=== PATIENT | male | born 1975 | race Caucasian/White ===

== ENCOUNTER 2018-05-10 01:39 | Emergency (ER) | payer OTHER ==
[~2018-05-10] VITALS: Ht 177.8 cm; Wt 97.5 kg
[~2018-05-10 01:39] MED LIST: SYMBICORT; VENTOLIN HFA 1818 GM
[2018-05-10 02:00] LABS: ABSOLUTE BASOPHILS 0.1 thou/uL (0.0-0.2); ABSOLUTE EOSINOPHILS 0.4 thou/uL (0.0-0.7); ABSOLUTE MONOCYTES 0.7 thou/uL (0.0-1.2); ABSOLUTE NEUTROPHILS 5.3 thou/uL (1.6-8.1); BASOPHILS 1.3 %; EOSINOPHILS 4.4 %; HEMATOCRIT 42.7 % (42.0-52.0); HEMOGLOBIN 14.3 gm/dL (14.0-18.0); LYMPHOCYTES 31.1 %; MCH 28.9 pg (26.0-34.0); MCHC 33.5 g/dL (28.0-37.0); MCV 86.2 fL (80.0-100.0); MONOCYTES 7.8 %; MPV 8.1 fl. (7.2-11.1); NUCLEATED RBCS 0 /100WBC; PLATELET COUNT* 316 thou/uL (150-400); POLYS 55.4 %; RBC 4.95 mil/uL (4.50-6.00); RDW-CV 13.8 % (10.5-14.5); WBC 9.6 thou/uL (4.0-11.0)
[2018-05-10 02:08] LABS: ANION GAP 6 mmol/L (7-16); BUN 16 mg/dL (7-18); CALCIUM 8.9 mg/dL (8.5-10.1); CHLORIDE 104 mmol/L (98-107); CO2 28 mmol/L (21-32); GLUCOSE 112 mg/dL (70-99); POTASSIUM 3.4 mmol/L (3.5-5.1); SODIUM 138 mmol/L (136-145)
[2018-05-10 02:15] LABS: ALBUMIN 3.6 g/dL (3.4-5.0); ALKALINE PHOSPHATASE 101 U/L (46-116); SGOT 21 U/L (15-37); SGPT 34 U/L (30-65); TOTAL BILIRUBIN 0.3 mg/dL (<0.1-1.0); TOTAL PROTEIN 6.5 g/dL (6.4-8.2); TROPONIN-I LEVEL <0.06 ng/mL (<0.06)
[2018-05-10 02:49] LABS: URINE BILIRUBIN NEGATIVE (Negative); URINE BLOOD NEGATIVE (Negative); URINE CLARITY CLEAR; URINE COLOR STRAW; URINE GLUCOSE-RANDOM NEGATIVE (Negative); URINE KETONES NEGATIVE (Negative); URINE LEUKOCYTES-REFLEX NEGATIVE (Negative); URINE NITRITE-REFLEX NEGATIVE (Negative); URINE PROTEIN NEGATIVE (Negative); URINE SPECIFIC GRAVITY <= 1.005 (1.005-1.030); URINE UROBILINOGEN 0.2 E.U./dl (0.2-1.0)
[2018-05-10] MEDS ORDERED: PREDNISONE50 MG PO (04:20)
--- NOTE | 2018-05-10 17:52 | EKG ---
[place] [address] ELECTROCARDIOGRAM REPORT Name: PAM CHAUDHRY Room: [facility]#: [id number] Admission: 05/10/18 Attend Phys: Discharge: 05/10/18 Date of : 79 Report #: [id number] THIS REPORT FOR: //name// [facility] ED Test Date: 2018-05-10 Test Time: 01:43:27 Pat Name: PAM CHAUDHRY Department: Room: Gender: M [employer]: : 1975 Requested By: Gianna Sanchez Order Number: [id number] MD: Festus Mcdermott Measurements Intervals [place] Rate: 79 P: 52 NH: 152 QRS: 48 QRSD: 97 T: 40 QT: 368 QTc: 422 Interpretive Statements Sinus rhythm Compared to ECG 03/05/2017 21:45:59 No significant changes Electronically Signed On 05-10-2018 17:52:12 CDT by Festus Mcdermott [email or web address] <ELECTRONICALLY SIGNED> By: Festus Mcdermott MD, [facility] 05/10/18 1752 [id number] [id number] Festus Mcdermott MD, FAC /EPI
== END 2018-05-10 04:22 | disposition home or self-care (01) ==
LOC: M.ERS 01:39
PROVIDERS: Emergency Medicine
DX: R07.9 Chest pain, unspecified (principal); J45.909 Unspecified asthma, uncomplicated; F17.210 Nicotine dependence, cigarettes, uncomplicated

== ENCOUNTER 2018-12-05 01:08 | Emergency (ER) | payer OTHER ==
[~2018-12-05] VITALS: Ht 177.8 cm; Wt 97.5 kg
[~2018-12-05 01:08] MED LIST changes: +PREDNISONE50 MG PO
[2018-12-05 01:41] LABS: ABSOLUTE BASOPHILS 0.1 thou/uL (0.0-0.2); ABSOLUTE EOSINOPHILS 0.7 thou/uL (0.0-0.7); EOSINOPHILS 4.7 %; MPV 8.1 fl. (7.2-11.1); RDW-CV 13.9 % (10.5-14.5); WBC 14.1 thou/uL (4.0-11.0)
[2018-12-05 01:46] LABS: ABSOLUTE MONOCYTES 0.9 thou/uL (0.0-1.2); ABSOLUTE NEUTROPHILS 10.5 thou/uL (1.6-8.1); BASOPHILS 0.6 %; HEMATOCRIT 42.9 % (42.0-52.0); HEMOGLOBIN 14.6 gm/dL (14.0-18.0); LYMPHOCYTES 13.9 %; MCH 28.5 pg (26.0-34.0); MCV 83.8 fL (80.0-100.0); MONOCYTES 6.4 %; NUCLEATED RBCS 0 /100WBC; PLATELET COUNT* 381 thou/uL (150-400); POLYS 74.4 %; RBC 5.12 mil/uL (4.50-6.00)
[2018-12-05 01:51] LABS: ANION GAP 10 mmol/L (7-16); BUN 11 mg/dL (7-18); CALCIUM 8.6 mg/dL (8.5-10.1); CHLORIDE 102 mmol/L (98-107); CO2 26 mmol/L (21-32); GLUCOSE 103 mg/dL (70-99); POTASSIUM 4.1 mmol/L (3.5-5.1); SODIUM 138 mmol/L (136-145)
[2018-12-05 02:00] LABS: ALBUMIN 3.6 g/dL (3.4-5.0); ALKALINE PHOSPHATASE 114 U/L (46-116); LIPASE 64 U/L (73-393); SGOT 18 U/L (15-37); SGPT 33 U/L (30-65); TOTAL BILIRUBIN 0.6 mg/dL (<0.1-1.0); TOTAL PROTEIN 7.2 g/dL (6.4-8.2); TROPONIN-I LEVEL <0.06 ng/mL (<0.06)
[2018-12-05 02:54] LABS: URINE BILIRUBIN NEGATIVE (Negative); URINE BLOOD NEGATIVE (Negative); URINE CLARITY CLEAR; URINE COLOR YELLOW; URINE GLUCOSE-RANDOM NEGATIVE (Negative); URINE KETONES NEGATIVE (Negative); URINE LEUKOCYTES-REFLEX NEGATIVE (Negative); URINE NITRITE-REFLEX NEGATIVE (Negative); URINE PROTEIN NEGATIVE (Negative); URINE SPECIFIC GRAVITY <= 1.005 (1.005-1.030); URINE UROBILINOGEN 0.2 E.U./dl (0.2-1.0)
[2018-12-05] MEDS ORDERED: HYDROCODONE-AP1 EAC6 PO (03:11)
[2018-12-05] MEDS ORDERED: ZOFRAN ODT4 MG DISSOLVE (03:11)
[2018-12-05] MEDS ORDERED: AUGMENTIN 875-1 EACH PO (03:11)
[2018-12-05 03:30] VITALS: BP 146/92
--- NOTE | 2018-12-07 13:00 | EKG ---
[place] [address] ELECTROCARDIOGRAM REPORT Name: PAM CHAUDHRY [id number] Admission: 12/05/18 Attend Phys: Discharge: 12/05/18 Date of : 79 Report #: [id number] THIS REPORT FOR: //name// [facility] ED Test Date: 2018-12-05 Test Time: 01:30:51 Pat Name: PAM CHAUDHRY Department: Room: Gender: M [employer] Instrument Mechanic: HERMILO : 1975 Requested By: Tyler Weiss Order Number: [id number] MD: Darnell Addison Measurements Intervals [place] Rate: 108 P: 41 IN: 135 QRS: 38 QRSD: 87 T: 12 QT: 310 QTc: 416 Interpretive Statements Sinus tachycardia Compared to ECG 05/10/2018 01:43:27 Sinus rhythm no longer present Electronically Signed On 12-07-2018 13:00:15 CDT by Darnell Addison [email or web address] <ELECTRONICALLY SIGNED> By: Darnell Addison MD, [facility] 12/07/18 1300 0130 0130 Darnell Addison MD, FACC /EPI
== END 2018-12-05 03:30 | disposition home or self-care (01) ==
LOC: M.ERS 01:08
PROVIDERS: Emergency Medicine Emergency Medical Services
DX: K57.32 Diverticulitis of large intestine without perforation or abscess without bleeding (principal); J45.909 Unspecified asthma, uncomplicated; F17.210 Nicotine dependence, cigarettes, uncomplicated

== ENCOUNTER 2019-05-31 11:43 | Emergency (ER) | payer OTHER ==
[~2019-05-31] VITALS: Ht 177.8 cm; Wt 97.5 kg
[~2019-05-31 11:43] MED LIST changes: +AUGMENTIN 875-1 EACH PO; +HYDROCODONE-AP1 EAC6 PO; +ZOFRAN ODT4 MG DISSOLVE
[2019-05-31 13:21] VITALS: BP 141/87
== END 2019-05-31 13:22 | disposition home or self-care (01) ==
LOC: M.ERS 11:43
DX: S61.212A Laceration without foreign body of right middle finger without damage to nail, initial encounter (principal); S60.410A Abrasion of right index finger, initial encounter; S60.414A Abrasion of right ring finger, initial encounter; J45.909 Unspecified asthma, uncomplicated; F17.210 Nicotine dependence, cigarettes, uncomplicated; X58.XXXA Exposure to other specified factors, initial encounter; Y93.89 Activity, other specified; Y92.89 Other specified places as the place of occurrence of the external cause; Y99.8 Other external cause status

== ENCOUNTER 2019-06-09 11:41 | Emergency (ER) | payer OTHER ==
[~2019-06-09] VITALS: Ht 177.8 cm; Wt 97.5 kg
[2019-06-09 11:45] VITALS: BP 147/87
[2019-06-09] MEDS ORDERED: ROSUVASTATIN CA20 MG PO (11:49)
[2019-06-09] MEDS ORDERED: SYMBICORT160 MCG/4. INH (11:49)
== END 2019-06-09 12:01 | disposition home or self-care (01) ==
LOC: M.ERS 11:41
DX: S61.212D Laceration without foreign body of right middle finger without damage to nail, subsequent encounter (principal); J45.909 Unspecified asthma, uncomplicated; F17.210 Nicotine dependence, cigarettes, uncomplicated; X58.XXXD Exposure to other specified factors, subsequent encounter